=== PATIENT | male | born 1940 | race African-American/Black ===

== ENCOUNTER → 2017-05-02 | Outpatient (CLI) | payer MEDICARE, OTHER ==
[~2017-05-02] MED LIST: CLEOCIN HCL300 MG PO; ED A HIST PO; GLUCOPHAGE500 MG PO; GLYBURIDE 2.52.5 MG GT; HCTZ PO; HTN; HYDROCHLOROTHIA25 M2 PO; HYDROCODON-ACE1 EACH PO; LANTUS SC; NOVOLOG SC; NOVOLOG100 UNIT/1 SQ; PENICILLIN VK500 M1 PO; PHENERGAN 25 MG25 M1 PO; PHENERGAN 25 MG25 MG PO; ZOCOR40 MG PO; ZOFRAN ODT4 MG PO; ZOFRAN4 MG PO; ZPAK PO
[2017-05-02 08:24] LABS: CREATININE 1.5 mg/dL (0.6-1.3)
== END ==
LOC: M.LAB 07:50 → M.CT 09:00
PROVIDERS: Internal Medicine Hematology & Oncology
DX: K40.90 Unilateral inguinal hernia, without obstruction or gangrene, not specified as recurrent (principal); R91.8 Other nonspecific abnormal finding of lung field; C22.8 Malignant neoplasm of liver, primary, unspecified as to type; N28.89 Other specified disorders of kidney and ureter; N32.89 Other specified disorders of bladder; N40.0 Benign prostatic hyperplasia without lower urinary tract symptoms; C64.1 Malignant neoplasm of right kidney, except renal pelvis

== ENCOUNTER 2017-05-24 00:20 | Inpatient (IN) | payer MEDICARE, OTHER ==
[~2017-05-24] VITALS: Ht 172.7 cm; Wt 72.1 kg
[2017-05-24] VITALS (7 sets, daily range): BP systolic 129–169; BP diastolic 68–92
[2017-05-24 01:08] LABS: HEMATOCRIT 31.6 % (42.0-52.0); HEMOGLOBIN 10.7 gm/dL (14.0-18.0); MCH 28.2 pg (26.0-34.0); MCHC 33.8 g/dL (28.0-37.0); MCV 83.6 fL (80.0-100.0); MPV 6.8 fl. (7.2-11.1); NUCLEATED RBCS 0 /100WBC; PLATELET COUNT* 480 thou/uL (150-400); RBC 3.78 mil/uL (4.50-6.00); RDW-CV 16.7 % (10.5-14.5); WBC 16.4 thou/uL (4.0-11.0)
[2017-05-24 01:30] LABS: CALCIUM 8.9 mg/dL (8.5-10.1); CREATININE 1.7 mg/dL (0.6-1.3); POTASSIUM 3.2 mmol/L (3.5-5.1)
[2017-05-24 01:34] LABS: ALBUMIN 2.8 g/dL (3.4-5.0); TOTAL BILIRUBIN 0.5 mg/dL (<0.1-1.0); TOTAL PROTEIN 6.9 g/dL (6.4-8.2)
[2017-05-24 01:48] LABS: ABSOLUTE LYMPHOCYTES 0.7 thou/uL (0.8-5.3); ABSOLUTE NEUTROPHILS 14.8 thou/uL (1.6-8.1); ANISOCYTOSIS 1+; HYPOCHROMASIA 1+; PLATELET ESTIMATE INCREASED; POIKILOCYTOSIS 1+; POLYCHROMASIA Occasional
[2017-05-24 01:49] LABS: TOXIC GRANULATION 1+
--- NOTE | 2017-05-24 05:25 | NUR ---
Pt arrived to unit from ED at 0245. States he had had the hiccups for past 3 days non-stop, which initially brought pt into ED. Reports that he has Rt renal CA, and is scheduled to resume chemotherapy on next week (in [facility] [place]). States his last chemo treatment was approx 1 month ago. Pt also has large hernia at Rt testicle; states he's had it for 3-4 years and during workup the renal CA was discovered. Abdomen round and distended; states he has had regular bowel movements and normal appetite. However, pt voided only 25 mls dark urine this am. Bladder scan yields 300 mls. Awaiting call from physician to report findings. VSS. Will continue to monitor.
[2017-05-24 10:00] LABS: CALCIUM 8.6 mg/dL (8.5-10.1); CREATININE 1.8 mg/dL (0.6-1.3); POTASSIUM 3.4 mmol/L (3.5-5.1)
--- NOTE | 2017-05-24 14:37 | NUR ---
MET WITH PT TO DISCUSS HOME SITUATION/DC PLANNING. PT LIVES ALONE IN [facility]. HE STATES HE IS INDEPENDENT AND ACTIVE. DRIVES, COOKS, CLEANS. HE IS CURRENTLY GETTING CHEMO AND THINKS HIS ONCOLOGIST IS DR JONES. SCHEDULED TO HAVE CHEMO AGAIN NEXT SATURDAY. PT ALSO STATES HE HAS AN APPT WITH A NEW PCP ON SATURDAY, BUT DOESN'T KNOW DR'S NAME. PT HAS NOT HAD HH AND USES NO EQUIPMENT. HE DOESN'T HAVE A DPOA AND DECLINED INFO. DISCUSSED [facility] WITH PT AND HE WAS AGREEABLE TO THAT. CALLED AND FAXED INITIAL REFERRAL TO [facility]. WILL F/U WITH THEM ON SATURDAY. PT PLANS TO RETURN [place] AT [place] ALONE
--- NOTE | 2017-05-24 18:09 | EKG ---
[place] [address] ELECTROCARDIOGRAM REPORT Name: AMADO MEDRANO Room: [address] ADM IN [facility]#: [id number] Admission: 05/24/17 Attend Phys: Carter Greene MD Discharge: Date of : 36 Report #: [id number] THIS REPORT FOR: //name// [facility] ED Test Date: 2017-05-24 Test Time: 02:01:35 Pat Name: AMADO MEDRANO Department: Room: [facility] Gender: Back Sewer: JASPER : 1940 Requested By: Jamal Fiore Order Number: [id number] MD: Kirby Turk Measurements Intervals [place] Rate: 129 P: 73 LA: 118 QRS: -26 QRSD: 79 T: 55 QT: 329 QTc: 482 Interpretive Statements Sinus tachycardia Probable left atrial enlargement Borderline left axis deviation Borderline prolonged QT interval Compared to ECG 10/03/2012 16:07:28 Sinus rhythm no longer present Electronically Signed On 05-24-2017 18:09:41 CDT by Kirby Turk [email or web address] <ELECTRONICALLY SIGNED> By: Kirby Turk MD, FACC 05/24/17 1809 0201 0201 Kirby Turk MD, FAC /EPI
--- NOTE | 2017-05-24 18:30 | NUR ---
RECEIVED REPORT. ASSUMED CARE OF PT AT 0730. PT A&O X4. VSS. O2 SAT 97% ON ROOM AIR. CORPORATE COMPLIANCE MANAGER IN PLACE TRACING ST. PT ASYMPTOMATIC WITH HR. DR GOEL AWARE; NO ORDERS RECEIVED OTHER THAN TO MONITOR. AM ASSESSMENT AND VITALS COMPLETED CHARTED. IV ACCESS LOST THIS AM. NEW IV STARTED, REQUIRED PLATEN PRESS FEEDER TO PLACE. PT CAUGHT 2ND IV THIS EVENING ON BED AND DISCONTINUED IV. NOC NURSE TO PLACE NEW LINE. PT EATING AND DRINKING WITHOUT ISSUE - 1500CC FLUID RESTRICTION MAINTAINED. PT OLIGURIC TODAY - BLADDER SCANNED X2, 349 AND 380 RESIDUAL. PT HESITANT TO HAVE CATHETER PLACED, STATES THAT STRAIGHT CATH LAST NIGHT WAS PAINFUL. WILL CONTINUE TO MONITOR URINE OUTPUT. PT HAD VISITORS THIS AFTERNOON. PT DENIED PAIN THROUGHOUT THE SHIFT. HERNIA TO RIGHT SCROTUM NOTED. BELLY FIRM AND DISTENDED. PT STATES "IT'S BECAUSE OF THE CANCER". PT IN AND OUT OF BED ALL DAY. HICCUPS RESOLVED THIS AM. PT PARTIALLY PROGRESSING TOWARDS GOALS. CALL LIGHT IS WITHIN REACH. FALL PRECAUTIONS ARE IN PLACE. HOURLY ROUNDING PERFORMED.
[2017-05-25 00:12] VITALS: BP 110/67
[2017-05-25 03:34] VITALS: BP 117/68
--- NOTE | 2017-05-25 05:41 | NUR ---
PT CARE ASSUMED AFTER REPORT. ASSESSMENT COMPLETE. SR/ST ON MONITOR. NEW IV PLACEMENT AND IV FLUIDS INFUSING. DENIES PAIN. FALL PRECAUTIONS IN PLACE INCLUDING BED ALARM. UP TO CHAIR WITH MIN ASSIST. CALL LIGHT IN REACH. BED IN LOWEST POSITION. PROGRESSING TOWARDS GOALS.
[2017-05-25 08:27] LABS: CALCIUM 8.8 mg/dL (8.5-10.1); POTASSIUM 3.4 mmol/L (3.5-5.1)
[2017-05-25 08:28] LABS: CREATININE 3.7 mg/dL (0.6-1.3)
[2017-05-25 08:35] VITALS: BP 108/75
[2017-05-25 08:37] LABS: HEMATOCRIT 31.2 % (42.0-52.0); MCH 28.3 pg (26.0-34.0); MCHC 32.1 g/dL (28.0-37.0); MPV 7.2 fl. (7.2-11.1); RBC 3.55 mil/uL (4.50-6.00); RDW-CV 15.9 % (10.5-14.5); WBC 22.9 thou/uL (4.0-11.0)
--- NOTE | 2017-05-25 08:40 | NUR ---
RECEIVED REPORT. ASSUMED CARE OF PT AT 0730. VSS, O2 SAT 92% ON RA. SUPERVISOR BAKING IN PLACE TRACING ST. AM ASSESSMENT AND VITALS COMPLETED CHARTED. PT DENIES PAIN OR DISCOMFORT AT THIS TIME. PT MORE CONFUSED THIS MORNING THAN YESTERDAY - STATES HE DOES NOT KNOW WHY HE CAME TO THE HOSPITAL. OREITNED TO PERSON, PLACE AND DATE. PT SPEECH DIFFICULT TO UNDERSTAND. PT STATES HE WAS ABLE TO VOID LAST NIGHT. WHEN ASKED IF HE URINATES MUCH AT HOME HE SAID "NO NOT THAT MUCH". ABDOMEN HARD AND DISTENDED, BOWEL SOUNDS AUSCULTATED IN ALL 4 QUADRANTS. PT BELCHING DURING ASSESSMENT. PT STATES HICUPPS HAVE RESOLVED FROM YESTERDAY. SKIN COOL AND CLAMMY TO TOUCH, BLOOD GLUCOSE 203. PT STATES "I FEEL ALRIGHT". PT ASKING WHEN HE MIGHT BE ABLE TO LEAVE THE HOSPITAL. EDUCATION GIVEN THAT THE DOCTOR WOULD ROUND THIS AM AND WOULD GIVE HIM AN IDEA OF DISHCARGE DATE. PT ASSISTED TO SIT UP IN BED FOR BREAKFAST. MEAL TRAY SET UP. CALL LIGHT IS WITHIN REACH, FALL PRECAUTIONS IN PLACE. WILL CONTIUE TO MONITOR.
--- NOTE | 2017-05-25 09:10 | NUR ---
RECEIVED CALL FROM PT'S DAUGHTER AROUND 0845. UPDATED DAUGHTER ON PT'S CONDITION. DAUGHTER STATES SHE TALKS DAILY WITH HER FATHER AND THAT CONFUSION IS NOT HIS BASELINE. DISCUSSED PT GENERAL CONDITION AND PLAN OF CARE WITH CHARGE NURSE. PT SCREENING POSITIVE ON SEPSIS SCREEN. DR. GOEL NOTIFIED VIA [employer] OF SEPSIS SCREENING AND CHANGE IN MENTAL STATUS, INCLUDING WHAT DAUGHTER STATED ABOUT CONFUSION BEING ABNORMAL FOR THE PT. AWAITING ORDERS. FLUIDS AND IV ANTIBIOTICS ALREADY ON PT EMAR. FLUIDS CURRENTLY INFUSING. GOING TO [facility]OT[facility] NOW.
--- NOTE | 2017-05-25 13:15 | NUR ---
ENTERED PT'S ROOM TO [facility] APPROX 0924. PT FOUND TO BE UNRESPONSIVE. CALLED FOR HELP. CODE BLUE ACTIVATED. COMPRESSIONS STARTED. SEE CODE BLUE FLOW SHEET FOR SEQUENCE OF EVENTS. TIME OF CALLED AT 0942. DR GOEL NOTIFIED DAUGHTER OF PT'S CONDITION - DAUGHTER STATED TO STOP THE CODE PROCESS AFTER [address] GOEL NOTIFED DOCTOR OF PT'S TIME OF . [facility] CONTACTED. AFTER CARE PERFORMED. PT'S SISTER AND ARRIVED. BELONGINGS GATHERED AND SENT WITH SISTER. ARRANGEMENTS MADE WITH [facility]. HOME PICKED UP PT AT 1315.
== END 2017-05-25 09:42 | DRG 643 ==
LOC: M.ERS 00:20 → M.TBA-ER 01:58 → M.2W 02:06 → M.TBA-ER 03:04 → M.2W 05-25 09:42
PROVIDERS: Emergency Medicine; Internal Medicine; ADMIT Internal Medicine
DX: E22.2 Syndrome of inappropriate secretion of antidiuretic hormone (principal); J15.6 Pneumonia due to other Gram-negative bacteria; E44.1 Mild protein-calorie malnutrition; C64.9 Malignant neoplasm of unspecified kidney, except renal pelvis; R09.2 Respiratory arrest; I46.9 Cardiac arrest, cause unspecified; N18.3 Chronic kidney disease, stage 3 (moderate); E11.22 Type 2 diabetes mellitus with diabetic chronic kidney disease; I12.9 Hypertensive chronic kidney disease with stage 1 through stage 4 chronic kidney disease, or unspecified chronic kidney disease; Z85.038 Personal history of other malignant neoplasm of large intestine; Z79.899 Other long term (current) drug therapy; Z68.24 Body mass index [BMI] 24.0-24.9, adult